=== PATIENT | female | born 1980 | race Caucasian/White ===

== ENCOUNTER 2016-06-25 10:44 | Emergency (ER) | payer OTHER ==
[~2016-06-25 10:44] MED LIST: COLACE 100MG C100 MG PO; IBUPROFEN600 MG PO; NORCO 10-325 T1 EACH PO
== END 2016-06-25 12:19 | disposition home or self-care (01) ==
LOC: ER1 10:44
DX: S60.222A Contusion of left hand, initial encounter (principal); F17.210 Nicotine dependence, cigarettes, uncomplicated; W20.8XXA Other cause of strike by thrown, projected or falling object, initial encounter; Y92.009 Unspecified place in unspecified non-institutional (private) residence as the place of occurrence of the external cause
CPT/HCPCS: 29125; 73130; 99283

== ENCOUNTER 2020-10-18 12:58 | Emergency (ER) | payer OTHER ==
[~2020-10-18 12:58] MED LIST changes: +BENADRYL25 MG PO; +NEOSPORIN OINT15 GM OU; +PERCOCET 5/325 T1 EA PO; +VIBRAMYCIN 100100 MG PO
[2020-10-18] MEDS ORDERED: BACTROBAN OINT22 GM EXT (16:08)
[2020-10-18] MEDS ORDERED: IBU800 MG PO (16:08)
[2020-10-18] MEDS ORDERED: CEPHALEXIN500 M1 PO (16:08)
== END 2020-10-18 16:36 | disposition home or self-care (01) ==
LOC: ER1 12:58
DX: S61.201A Unspecified open wound of left index finger without damage to nail, initial encounter (principal); F17.210 Nicotine dependence, cigarettes, uncomplicated; Z23 Encounter for immunization; W23.0XXA Caught, crushed, jammed, or pinched between moving objects, initial encounter; Y92.009 Unspecified place in unspecified non-institutional (private) residence as the place of occurrence of the external cause
CPT/HCPCS: 73140; 90471; 90715; 96372; 99283; J0690